=== PATIENT | male | born 1985 | race Hispanic/Latino ===

== ENCOUNTER 2020-09-09 14:46 | Emergency (ER) | payer OTHER, SELFPAY ==
[2020-09-09 15:35] LABS: BASOPHILS % (AUTO) 0.3 % (0.0-5.0); EOSINOPHILS % (AUTO) 0.5 % (0.0-8.0); LYMPHOCYTES % (AUTO) 7.8 % (21.0-51.0); MEAN CORPUSCULAR HGB CONC 35.6 g/dL (32.0-36.0); MEAN CORPUSCULAR VOLUME 81.7 fL (79-99); MONOCYTES % (AUTO) 7.2 % (3.0-13.0); NEUTROPHILS % (AUTO) 83.8 % (40.0-77.0); PLATELET COUNT (AUTO) 144 K/uL (130-400); RED BLOOD CELL COUNT(AUTO) 5.51 MIL/uL (4.50-6.20); RED CELL DISTRIBUTION WIDTH 12.2 % (11.0-15.5); WHITE BLOOD COUNT (AUTO) 10.7 K/uL (4.8-10.8)
[2020-09-09 15:48] LABS: CREATININE 1.2 mg/dL (0.5-1.5); POTASSIUM 3.3 mmol/L (3.5-5.1)
[2020-09-09 15:52] LABS: ALBUMIN 3.5 g/dL (3.5-5.0); BILIRUBIN,TOTAL 1.2 mg/dL (0.2-1.0); TOTAL PROTEIN, SERUM 8.5 g/dL (6.0-8.3)
[2020-09-09] MEDS ORDERED: IOHEXOL-350 75 ML VIAL IV ONE (16:16)
[2020-09-09] MEDS ORDERED: 0.9%NACL 1000ML 2,000 ML IV ONE (16:30)
[2020-09-09] MEDS ORDERED: ZOSYN 3.375GM+NS 50ML 50 ML IV ONE (16:30)
[2020-09-09] MEDS ORDERED: ACETAMINOPHEN 325 MG TAB ONE ×2 (16:30→17:34)
== END 2020-09-09 19:43 | disposition home or self-care (01) ==
LOC: EDH 14:46
DX: A09 Infectious gastroenteritis and colitis, unspecified (principal); Z20.822 Contact with and (suspected) exposure to COVID-19
CPT/HCPCS: 36415; 71045; 74177; 80053; 83605; 83690; 85025; 87040 ×2; 87426; 87804 ×2; 87880; 96365; 99285; J2543; J7030; Q9967; U0003